=== PATIENT | male | born 1945 | race Caucasian/White ===

== ENCOUNTER 2022-02-10 09:58 | Emergency (ER) | payer MEDICARE, OTHER ==
[2022-02-10 10:59] LABS: Eosinophil % 1.3 % (0.00-5.0); Eosinophil (Absolute #) 0.14 x10^3/uL (0-0.5); Lymphocyte (Absolute #) 1.93 x10^3/uL (1.0-4.6); Lymphocytes % 18.4 % (24.0-44.0); Mean Cell Volume 89.5 fL (78-100); Mean Corpuscular Hemoglobin 28.6 pg (26-32); Mean Corpuscular Hgb Concent. 31.9 g/dL (32-36); Mean Platelet Volume 11.8 fL (7.5-11.0); Monocyte (Absolute #) 1.18 x10^3/uL (0.0-1.3); Monocytes % 11.3 % (0.0-12.0); Neutrophil % 67.7 % (36.0-66.0); Platelet Count 196 x10^3/uL (150-450); Red Blood Count 5.25 x10^6/uL (4.1-5.6); Red Cell Distribution Width 14.1 % (11.5-14.0); White Blood Count 10.5 x10^3/uL (4.0-10.5)
[2022-02-10 11:13] LABS: ALBUMIN 4.1 g/dL (3.5-5.0); ALKALINE PHOSPHATASE 88 U/L (38-126); ANION GAP 13.7 MEQ/L (5-15); BLOOD UREA NITROGEN 19 mg/dL (9-20); CHLORIDE 103 mmol/L (98-107); Calcium 9.4 mg/dL (8.4-10.2); Carbon Dioxide 24 mmol/L (22-30); Creatinine 1 0.85 mg/dL (0.66-1.25); EST GLOMERULAR FILTRATION RATE > 60.0 ML/MIN; Glucose 103 mg/dL (74-106); Potassium 4.4 mmol/L (3.5-5.1); SGOT/AST 24 U/L (17-59); SGPT/ALT 5 U/L (0-50); SODIUM 136 mmol/L (137-145)
[2022-02-10 11:24] VITALS: BP 100/89
[2022-02-10 11:33] VITALS: O2SAT 96
--- NOTE | 2022-02-10 11:33 | ERPHSYRPT ---
- History of Present Illness Time Seen by Provider: 02/10/22 10:46 Source: patient Exam Limitations: no limitations Patient Subjective Stated Complaint: pt here for sore throat 2 days now, with cough. no fever Triage Nursing Assessment: pt alert, walked in, resp easy, face mask applied, has hoarse voice, dry cough Physician History: 76-year-old male with history of Parkinson's disease presented in the ER with 2 days history of cough congestion, sore throat. Patient reports nasal/sinus congestion with pressure and minimal productive cough of clear sputum without any difficulty breathing. No fever or chills reported. Denies any sick contact. Timing/Duration: day(s) (2), gradual onset, worse Cough Quality/Degree: mild, moderate, productive cough Possible Cause: unknown cause Associated Symptoms: cough, nasal congestion, nasal drainage, sinus infection, sore throat, No fever, No shortness of breath Allergies/Adverse Reactions: No Known Drug Allergies Allergy (Unverified 02/10/22 10:15) Home Medications: Carbidopa/Levodopa [Carbidopa-Levo 25-250 mg Odt] 1 ea BID 02/10/22 [History] Pramipexole Di-HCl [Pramipexole ER] 1 ea BID 02/10/22 [History] Venlafaxine HCl 1 ea DAILY 02/10/22 [History] clonazePAM [Clonazepam] 1 ea DAILY 02/10/22 [History] Hx Influenza Vaccination/Date Given: No Hx Pneumococcal Vaccination/Date Given: No Immunizations Up to Date: Yes Travel Risk - International Travel Have you traveled outside of the country in past 3 weeks: No - Coronavirus Screening Are you exhibiting any of the following symptoms?: Yes Symptoms: Cough: New Onset, Headaches/Body Aches/Fatigue Close contact with a COVID-19 positive Pt in past 14-21 Days: No - Vaccine Status Have you recieved a Covid-19 vaccination: No - Review of Systems Constitutional: No Symptoms Eyes: No Symptoms Ears, Nose, & Throat: Nose Congestion, Throat Pain Respiratory: Cough Cardiac: No Symptoms Abdominal/Gastrointestinal: No Symptoms Genitourinary Symptoms: No Symptoms Skin: No Symptoms Neurological: Tremors Psychological: No Symptoms Endocrine: No Symptoms Immunological/Allergic: No Symptoms - Past Medical History Pertinent Past Medical History: Yes Neurological History: Other Cardiac History: No Pertinent History Respiratory History: No Pertinent History Endocrine Medical History: No Pertinent History Musculoskeletal History: Degenerative Disk Disease, Osteoarthritis Other Medical History: parkinsons - Past Surgical History Past Surgical History: Yes - Social History Smoking Status: Never smoker Exposure to second hand smoke: No Drug Use: none Patient Lives Alone: No - Nursing Vital Signs Nursing Vital Signs: Initial Vital Signs Blood Pressure 100/89 02/10/22 11:24 Pain Scale Pain Intensity 0 - Physical Exam General Appearance: no apparent distress, alert Eye Exam: PERRL/EOMI Ears, Nose, Throat Exam: TMs normal, pharyngeal erythema Neck Exam: normal inspection, supple, full range of motion Respiratory Exam: normal breath sounds, lungs clear Cardiovascular Exam: regular rate/rhythm, normal heart sounds Back Exam: normal inspection, normal range of motion Extremity Exam: normal inspection, normal range of motion Neurologic Exam: alert, oriented x 3, cooperative, medical technologist prn II-XII nml as tested, No normal mood/affect (Anxious) Skin Exam: normal color SpO2 Interpretation: normal SpO2: 96 O2 Delivery: Room Air Ordered Tests: Active Orders 24 hr Category Date Time Status CHEST 1 VIEW (PORTABLE) Stat Exams 02/10/22 10:20 Taken BLOOD CULTURE Stat Lab 02/10/22 10:48 Received CBC W DIFF Stat Lab 02/10/22 10:41 Completed CMP Stat Lab 02/10/22 10:41 Completed Lactic Acid Stat Lab 02/10/22 10:50 Completed Lab/Rad Data: Laboratory Result Diagrams 02/10/22 10:41 02/10/22 10:41 Laboratory Results 02/10/22 02/10/22 02/10/22 Range/Units 11:10 10:50 10:41 WBC (4.0-10.5) x10^3/uL RBC (4.1-5.6) x10^6/uL Hgb (12.5-18.0) g/dL Hct (42-50) % MCV (78-100) fL MCH (26-32) pg MCHC (32-36) g/dL RDW (11.5-14.0) % Plt Count (150-450) x10^3/uL MPV (7.5-11.0) fL Gran % (36.0-66.0) % Immature Gran % (Auto) (0.00-0.4) % Nucleat RBC Rel Count (0.00-0.1) % Eos # (Auto) (0-0.5) x10^3/uL Immature Gran # (Auto) (0.00-0.03) x10^3u/L Absolute Lymphs (auto) (1.0-4.6) x10^3/uL Absolute Monos (auto) (0.0-1.3) x10^3/uL Absolute Nucleated RBC (0.00-0.01) x10^3u/L Lymphocytes % (24.0-44.0) % Monocytes % (0.0-12.0) % Eosinophils % (0.00-5.0) % Basophils % (0.0-0.4) % Absolute Granulocytes (1.4-6.9) x10^3/uL Basophils # (0-0.4) x10^3/uL Sodium (137-145) mmol/L Potassium (3.5-5.1) mmol/L Chloride (98-107) mmol/L Carbon Dioxide (22-30) mmol/L Anion Gap (5-15) MEQ/L BUN (9-20) mg/dL Creatinine (0.66-1.25) mg/dL Estimated GFR ML/MIN Glucose (74-106) mg/dL Lactic Acid 0.9 (0.4-2.0) Calcium (8.4-10.2) mg/dL Total Bilirubin (0.2-1.3) mg/dL AST (17-59) U/L ALT (0-50) U/L Alkaline Phosphatase (38-126) U/L Serum Total Protein (6.3-8.2) g/dL Albumin (3.5-5.0) g/dL Influenza Type A Ag NEGATIVE (NEGATIVE) Influenza Type B Ag NEGATIVE (NEGATIVE) RSV (PCR) NEGATIVE (Negative) SARS-CoV-2 (PCR) POSITIVE A (NEGATIVE) Group A Strep Antibody NOT DETECTED (NEGATIVE) 02/10/22 02/10/22 Range/Units 10:41 10:41 WBC 10.5 (4.0-10.5) x10^3/uL RBC 5.25 (4.1-5.6) x10^6/uL Hgb 15.0 (12.5-18.0) g/dL Hct 47.0 (42-50) % MCV 89.5 (78-100) fL MCH 28.6 (26-32) pg MCHC 31.9 L (32-36) g/dL RDW 14.1 H (11.5-14.0) % Plt Count 196 (150-450) x10^3/uL MPV 11.8 H (7.5-11.0) fL Gran % 67.7 H (36.0-66.0) % Immature Gran % (Auto) 0.3 (0.00-0.4) % Nucleat RBC Rel Count 0.0 (0.00-0.1) % Eos # (Auto) 0.14 (0-0.5) x10^3/uL Immature Gran # (Auto) 0.03 (0.00-0.03) x10^3u/L Absolute Lymphs (auto) 1.93 (1.0-4.6) x10^3/uL Absolute Monos (auto) 1.18 (0.0-1.3) x10^3/uL Absolute Nucleated RBC 0.00 (0.00-0.01) x10^3u/L Lymphocytes % 18.4 L (24.0-44.0) % Monocytes % 11.3 (0.0-12.0) % Eosinophils % 1.3 (0.00-5.0) % Basophils % 1.0 (0.0-0.4) % Absolute Granulocytes 7.10 H (1.4-6.9) x10^3/uL Basophils # 0.10 (0-0.4) x10^3/uL Sodium 136 L (137-145) mmol/L Potassium 4.4 (3.5-5.1) mmol/L Chloride 103 (98-107) mmol/L Carbon Dioxide 24 (22-30) mmol/L Anion Gap 13.7 (5-15) MEQ/L BUN 19 (9-20) mg/dL Creatinine 0.85 (0.66-1.25) mg/dL Estimated GFR > 60.0 ML/MIN Glucose 103 (74-106) mg/dL Lactic Acid (0.4-2.0) Calcium 9.4 (8.4-10.2) mg/dL Total Bilirubin 0.70 (0.2-1.3) mg/dL AST 24 (17-59) U/L ALT 5 (0-50) U/L Alkaline Phosphatase 88 (38-126) U/L Serum Total Protein 8.0 (6.3-8.2) g/dL Albumin 4.1 (3.5-5.0) g/dL Influenza Type A Ag (NEGATIVE) Influenza Type B Ag (NEGATIVE) RSV (PCR) (Negative) SARS-CoV-2 (PCR) (NEGATIVE) Group A Strep Antibody (NEGATIVE) - Progress Progress: unchanged Air Movement: good Progress Note: 02/10/22 11:31 76-year-old is evaluated for URI with cough. Chest x-ray reviewed by me did not show any obvious infiltrative process, official report is pending. Has unremarkable chemistries and white count. COVID-19 and strep test pending, p elan is very anxious and wants to leave. He wants us to call him with results if they are positive. Patient is not in any distress, nontoxic and is being discharged with albuterol and stable right lung with outpatient follow-up. Discussed signs symptoms of worsening needing return to ER which he seems understanding. Stable for discharge 02/10/22 13:28 Patient COVID came back positive. Patient is called by RN and offered Paxilovid which she declined. Recommended outpatient follow-up. Blood Culture(s) Obtained: Yes Antibiotics given: No Counseled pt/family regarding: lab results, diagnosis, need for follow-up, rad results - Departure Departure Disposition: Home Clinical Impression: URI with cough and congestion, COVID-19 virus detected Condition: Stable Critical Care Time: No Referrals: DANAY SCRUGGS Jr. [Primary Care Provider] - Follow up/PCP as directed (1-2 days for reevaluation) Instructions: Viral Syndrome (DC), Viral Pharyngitis (DC) Additional Instructions: Take Tylenol as needed for aches and pains. Use inhaler as needed for difficulty breathing or if having wheezing. Follow-up with primary care for reevaluation. Return to ER for any worsening. Prescriptions: Albuterol Sulfate [Albuterol Sulfate Hfa] 8.5 gm IH Q6H PRN 7 Days #1 inh PRN Reason: Cough Prednisone 20 mg [Deltasone 20 mg] 60 mg PO DAILY 5 Days #15 tablet
[2022-02-10 13:06] LABS: INFLUENZA A NEGATIVE (NEGATIVE); INFLUENZA B NEGATIVE (NEGATIVE); RESPIRATORY SYNCTIAL VIRUS NEGATIVE (Negative)
[2022-02-10 13:18] LABS: SARS-CoV-2 Xpert Express POSITIVE (NEGATIVE)
--- NOTE | 2022-02-10 19:23 | XRAY ---
Indication: Cough and sore throat. Comparison: May 30, 2021 Portable chest again demonstrates minimal lingula subsegmental atelectasis/scarring. Remaining lungs clear. Heart remains borderline enlarged. Bony thorax intact again with osteopenia and degenerative changes. Impression: Continued nonacute chest with chronic features.
== END 2022-02-10 11:38 | disposition home or self-care (01) ==
LOC: ED 09:58
DX: J06.9 Acute upper respiratory infection, unspecified (principal); U07.1 COVID-19; R05.1 Acute cough; R09.81 Nasal congestion; J02.9 Acute pharyngitis, unspecified; Z79.52 Long term (current) use of systemic steroids; Z28.310 Unvaccinated for COVID-19
CPT/HCPCS: 0241U; 36415; 71045; 80053; 83605; 85025; 87040; 87651; 99283

== ENCOUNTER 2025-01-29 18:39 | Emergency (ER) | payer MEDICARE ==
[2025-01-29 19:12] VITALS: TEMP 97.3
--- NOTE | 2025-01-29 19:12 | ERPHSYRPT ---
- History of Present Illness Time Seen by Provider: 01/29/25 19:12 Patient Subjective Stated Complaint: forward air controller/air officer states, "I received a call from his landlord wanting a welfare check. When I arrived he was there with a 'caregiver' that is most likely unable to provide the care he needs. She told me that he is hallucinating at night and seeing people coming into his house and cows outside his house.". Pt. states, "I feel fine, I just need some ice cream." Triage Nursing Assessment: Pt. arrives via EMS, A&Ox3, speech is hard to understand r/t parkinson's and edentulous status. Skin p/w/d, Resp even unlabored, trace edema in BLE's, Incontinent of urine, clothes soaked through with strong odor. Physician History: Patient BIBA after well check called in by amari. Patient AAOx3, denies pain, sob, swelling, dysuria. He does report that he has issues with incontinence. Patient somewhat difficulty to understand due to his parkinsons, but he is able to communicate and answer questions appropriately. Timing/Duration: today Modifying Factors: Worsens With: nothing Associated Symptoms: denies symptoms Allergies/Adverse Reactions: No Known Drug Allergies Allergy (Unverified 02/10/22 10:15) Home Medications: Carbidopa/Levodopa [Carbidopa-Levo 25-250 mg Odt] 1 ea BID 02/10/22 [History] Pramipexole Di-HCl [Pramipexole ER] 1 ea BID 02/10/22 [History] Venlafaxine HCl 1 ea DAILY 02/10/22 [History] clonazePAM [Clonazepam] 1 ea DAILY 02/10/22 [History] Hx Tetanus, Diphtheria Vaccination/Date Given: No Hx Influenza Vaccination/Date Given: No Hx Pneumococcal Vaccination/Date Given: No Travel Risk - International Travel Have you traveled outside of the country in past 3 weeks: No - Emerging Infectious Disease Are you exhibiting symptoms associated with any current EIDs: No - Review of Systems All Other Systems: Reviewed and Negative - Past Medical History Pertinent Past Medical History: Yes Neurological History: Other Cardiac History: No Pertinent History Respiratory History: Other Endocrine Medical History: No Pertinent History Musculoskeletal History: Osteoarthritis Other Medical History: PARKINSONS. TONSILS REMOVED. SOB. - Past Surgical History Past Surgical History: Yes - Social History Smoking Status: Never smoker Exposure to second hand smoke: No Drug Use: none - Social Determinants of Health Will the patient participate in the screening: Declined to provide - Nursing Vital Signs Nursing Vital Signs: Initial Vital Signs Temperature 97.3 F 01/29/25 18:40 Pulse Rate 68 01/29/25 18:40 Respiratory Rate 18 01/29/25 18:40 Blood Pressure 108/65 01/29/25 18:40 O2 Sat by Pulse Oximetry 96 01/29/25 18:40 Pain Scale Pain Intensity 0 - Physical Exam General Appearance: no apparent distress, obese Eye Exam: eyes nml inspection Ears, Nose, Throat Exam: normal ENT inspection Neck Exam: normal inspection, supple, full range of motion Respiratory Exam: normal breath sounds, lungs clear, airway intact, No respiratory distress Cardiovascular Exam: regular rate/rhythm, capillary refill <2 sec Gastrointestinal/Abdomen Exam: soft, No tenderness Extremity Exam: normal inspection, normal range of motion, No swelling Neurologic Exam: alert, oriented x 3, cooperative, normal mood/affect Skin Exam: normal color, warm, dry SpO2 Interpretation: normal SpO2: 96 O2 Delivery: Room Air - Course Nursing assessment & vital signs reviewed: Yes Ordered Tests: Active Orders 24 hr Category Date Time Status CULTURE,URINE Stat Lab 01/29/25 20:53 Received UA W/RFX UR CULTURE Stat Lab 01/29/25 20:53 Completed Medication Summary Discontinued Medications Generic Name Dose Route Start Last Admin Trade Name Freq PRN Reason Stop Dose Admin Cephalexin HCl 500 mg 01/29/25 21:32 Cephalexin Mh500 Mg Capsule PO 01/29/25 21:33 STAT ONE Lab/Rad Data: Laboratory Results 01/29/25 Range/Units 20:53 Urine Color Yellow (Yellow) Urine Appearance Clear (Clear) Urine pH 5.5 (4.6-8.0) Ur Specific Alpha 1.025 (1.005-1.030) Urine Protein Negative (Negative) Urine Glucose (UA) Negative (Negative) mg/dL Urine Ketones Negative (Negative) Urine Blood Negative (Negative) Urine Nitrite Positive A (Negative) Urine Bilirubin Negative (Negative) Urine Urobilinogen 1.0 A (0.2) mg/dL Ur Leukocyte Esterase Moderate A (Negative) U Hyaline Cast (Auto) NONE SEEN (0-2) /LPF Urine Microscopic RBC 0-2 (0-5) /HPF Urine Microscopic WBC 51-100 A (0-5) /HPF Ur Epithelial Cells None Seen (None Seen) /HPF Urine Bacteria Moderate A (None Seen) /HPF Urine Culture Reflexed YES (NO) - Progress Progress: improved Progress Note: 01/29/25 19:43 Will order UA due to incontinence and remote reports of hallucinations. No concern for active hallucinations or AMS. 01/29/25 21:36 UA shows UTI, started on Keflex. DC home with Keflex. Follow up with PCP. Counseled pt/family regarding: diagnosis, need for follow-up Medical Desision Making - Diagnostic Testing Diagnostic test were ordered, analyzed, and reviewed by me: Yes Radiological Interpretation: Interpreted by me - Risk of complications The pt has a mod risk of morbidity or mortality based on: Need for prescription drug management - Departure Departure Disposition: Home Clinical Impression: UTI (urinary tract infection) Condition: Stable Critical Care Time: No Referrals: DANAY SCRUGGS Jr. [Primary Care Provider, UNKNOWN] - Follow up/PCP as directed Instructions: Urinary tract infection in adults - ED discharge instructions Prescriptions: Cephalexin Mh 500 mg [Keflex 500 mg] 500 mg PO Q6H 7 Days #27 cap
[2025-01-29 21:06] VITALS: PULSE 64; RESP 22
[2025-01-29 21:21] LABS: Glucose, Urine Negative (Negative); Protein,Urine Dip Negative (Negative); RBC 0-2 /HPF (0-5); WBC 51-100 /HPF (0-5)
[2025-01-29] MEDS ORDERED: KEFLEX 500 MG ONE (21:35)
[2025-01-29] MEDS: KEFLEX 500 MG PO ONE (21:35)
[2025-01-29 21:37] VITALS: O2SAT 96
[2025-01-29 21:54] VITALS: BP 105/60
== END 2025-01-29 21:54 | disposition home or self-care (01) ==
LOC: ED 18:39
DX: N39.0 Urinary tract infection, site not specified (principal); R32 Unspecified urinary incontinence; Z79.899 Other long term (current) drug therapy